=== PATIENT | male | born 1950 | race Caucasian/White ===

== ENCOUNTER → 2017-10-15 | Outpatient (CLI) | payer OTHER ==
[~2017-10-15] MED LIST: ALL300 PO; ALLO-2 PO; DICL100G39 TOP; GLUC1TAB13 PO; HYDR-385 PO; LEVO50TA80 PO; LEVO50TA86 PO; LISI-362 PO; LISI20TA29 PO; LOR5/325 PO; NIA500 PO; PNEI IJ; PNEU0.5D3 IM; SIMV-49 PO; TRAM-420 PO; [UNRECOGNIZED DRUG - CODE] PO
[2017-10-15 11:27] LABS: LDL CHOLESTEROL 86 mg/dl
== END ==
LOC: LAB 11:01
PROVIDERS: ATTEND Internal Medicine
DX: I10 Essential (primary) hypertension (principal); E78.00 Pure hypercholesterolemia, unspecified; E03.9 Hypothyroidism, unspecified; M10.9 Gout, unspecified
CPT/HCPCS: 36415; 82040; 82247; 82310; 82374; 82435; 82465; 82565; 82947; 83718; 84075; 84132; 84155; 84295; 84443; 84450; 84460; 84478; 84520; 84550

== ENCOUNTER 2018-02-21 09:36 | Emergency (ER) | payer MEDICARE, OTHER ==
--- NOTE | 2018-02-21 10:16 | ER Report ---
History and Physical Time Seen By MD: 09:55 Hx. of Stated Complaint: INJURED L 4TH FINGER YESTERDAY, WOKE WITH FINGER SWELLING AND WEDDING BAND STUCK. HPI/ROS CHIEF COMPLAINT: finger injury HISTORY OF PRESENT ILLNESS: Pt was walking outside yesterday, fell, grabbing himself with his non dominant left hand; feels he jammed left ring finger. Pt did not have significant pain yesterday, but awoke with incresaed pain and swelling, now unable to remove his ring. Notes pain primarily at left ring finger PIP joint. no other pain or injuries REVIEW OF SYSTEMS: Respiratory: No cough, no dyspnea. Cardiovascular: No chest pain, no palpitations. Gastrointestinal: No vomiting, no abdominal pain. Musculoskeletal: No back pain. No head injury. No LOC, No bleeding, no other injury Allergies: Coded Allergies: No Known Drug Allergies (Unverified , 02/21/18) Home Meds Active Scripts Levothyroxine Sodium (LEVOTHYROXINE SODIUM) 50 Mcg Tablet, 1 TAB PO QDAY, #90 TAB 3 Refills Prov:PING LYNNE MD 12/25/17 Lisinopril (LISINOPRIL) 20 Mg Tablet, 1 TAB PO QDAY, #90 TAB 3 Refills Prov:PING LYNNE MD 10/15/17 Allopurinol (Allopurinol) 300 Mg Tablet, 1 TAB PO QDAY, #90 TAB 3 Refills Prov:PING LYNNE MD 07/16/17 Niacin (NIASPAN) 500 Mg Tab, 1 TAB PO QHS, #90 TAB 3 Refills Prov:PING LYNNE MD 05/27/17 Simvastatin (SIMVASTATIN) 20 Mg Tablet, 1 TAB PO QDAY, #90 TAB 3 Refills Prov:JESSICA GOTTLIEB APRN [employer] OPERATOR-C 01/04/17 Reported Medications Glucosamine Hcl/Chondr Mayers A Na (OSTEO BI-FLEX CAPLET) 1 Each Tablet, 2 TAB PO QDAY 06/14/14 Reviewed Nurses Notes: Yes Smoking Status: Never Smoker Exposure to Second Hand Smoke?: Yes Constitutional Vital Sign - Last 24 Hours 02/21/18 02/21/18 09:41 11:34 Temp 98.3 Pulse 66 76 Resp 16 16 B/P (MAP) 169/96 165/89 (114) Pulse Ox 96 97 O2 Delivery Room Air Room Air Physical Exam General Appearance: The patient is alert, has no immediate need for airway protection and no current signs of toxicity. [ ] Eyes: Pupils equal and round no injection. Respiratory: no respiratory distress Cardiac: regular rate Musculoskeletal: Extremities have full range of motion and are non tender with exception of left ring finger; edema, ecchymosis throughout with pip held in slight flexion. mild ttp throughout. No focal bony ttp Skin: No rashes or lesions. No lacerations DIFFERENTIAL DIAGNOSIS: After history and physical exam differential diagnosis was considered for fracture, dislocation, tendon rupture, or other complication of injury Medical Decision Making ED Course/Re-evaluation ED Course Pt presents with finger injury; attempted to remove ring with umbilical tape, but pt did not tolerate this. Proceeded to cut ring at pt's request. Will xray; xray without sgs of fracture. Pt has full ROM of finger on reassesment. D/c with GIULIA, supportive care, A[facility]rea' Decision to Disposition Date: Feb 21, 2018 Decision to Disposition Time: 11:15 Depart Departure Latest Vital Signs Vital Signs Date Time Temp Pulse Resp B/P (MAP) Pulse Ox O2 Delivery O2 Flow Rate FiO2 02/21/18 11:34 76 16 165/89 (114) 97 Room Air 02/21/18 09:41 98.3 Impression: Primary Impression: Finger sprain Condition: Improved Disposition: HOME OR SELF-CARE Referrals: PING LYNNE MD (PCP) Patient Instructions: Finger Sprain (ED) Additional Instructions: As we discussed, ice 20 minutes at a time, keep elevated above the heart, ibuprofen as needed. Return if unable to increasingly fully flex or extend, uncontrolled pain, worsening swelling, or any concerns. Problem Qualifiers Primary Impression: Finger sprain Encounter type: initial encounter Finger: ring finger Sprain of finger site: unspecified site Laterality: left Qualified Codes: S63.615A - Unspecified sprain of left ring finger, initial encounter JENN MORA MD Feb 21, 2018 10:16
--- NOTE | 2018-02-21 10:59 | RADIOLOGY IMAGING REPORT ---
FACILITY: [facility] PATIENT NAME: Loyd Martin : 1950 MR: [id number] V: [id number] EXAM DATE: ORDERING PHYSICIAN: JENN MORA TECHNOLOGIST: Location: [facility] Patient: Loyd Martin : 1950 Visit/Account:[id number] Date of Sevice: 02/21/2018 FINGER LEFT 4TH DIGIT COMPARISON: None. HISTORY: fall, ttp pip joint L ring TECHNIQUE: 3 views of the left fourth finger obtained. FINDINGS: BONES: Minimal degenerative spurring at the PIP and DIP joints. No acute fracture or malalignment. B eaklike osteophyte third metacarpal head with mild third MCP joint space narrowing. Advanced CMC join t osteoarthritis, incompletely imaged. SOFT TISSUES: Masslike focal soft tissue swelling dorsally at the PIP joint, probable soft tissue he matoma. OTHER: Negative. IMPRESSION: No acute fracture or malalignment in the left fourth finger. Focal soft tissue swelling, probable sof t tissue hematoma. Report Dictated By: Miguelito Chase at 02/21/2018 10:53 AM Report E-Signed By: Miguelito Chase at 02/21/2018 10:55 AM WSN:[id number]
[2018-02-21 11:34] VITALS: BP 165/89
== END 2018-02-21 11:36 | disposition home or self-care (01) ==
LOC: ER 09:50
DX: S63.615A Unspecified sprain of left ring finger, initial encounter (principal)
CPT/HCPCS: 99283

== ENCOUNTER → 2018-04-18 | Outpatient (CLI) | payer MEDICARE, OTHER ==
[~2018-04-18] MED LIST changes: +LISI-374 PO
[2018-04-18 09:27] LABS: LDL CHOLESTEROL 67 mg/dl
== END ==
LOC: LAB 08:59
PROVIDERS: ATTEND Internal Medicine
DX: E78.00 Pure hypercholesterolemia, unspecified (principal); I10 Essential (primary) hypertension
CPT/HCPCS: 36415; 82040; 82247; 82310; 82374; 82435; 82465; 82565; 82947; 83718; 84075; 84132; 84155; 84295; 84450; 84460; 84478; 84520

== ENCOUNTER → 2018-07-30 | Outpatient (CLI) | payer MEDICARE, OTHER ==
[~2018-07-30] MED LIST changes: +ATOR20TA65 PO; +METO50TA19 PO
[2018-07-30 11:41] LABS: PLATELET COUNT, AUTOMATED 274 K/uL (150-450)
== END ==
LOC: LAB 11:17
PROVIDERS: ATTEND Emergency Medicine
DX: I10 Essential (primary) hypertension (principal); Z80.42 Family history of malignant neoplasm of prostate
CPT/HCPCS: 36415; 85025; G0103; 84153